=== PATIENT | female | born 1995 | race Two or more races ===

== ENCOUNTER 2019-05-23 13:26 | Emergency (ER) | payer OTHER ==
[~2019-05-23] VITALS: Ht 160 cm; Wt 125.0 kg
[2019-05-23 13:33] VITALS: BP 147/87
== END 2019-05-23 16:25 | disposition left against medical advice (07) ==
LOC: EMS 13:27
DX: R51 Headache (principal); Z53.21 Procedure and treatment not carried out due to patient leaving prior to being seen by health care provider